=== PATIENT | male | born 1965 | race Caucasian/White ===

== ENCOUNTER 2020-08-16 09:06 | Outpatient (CLI) | payer OTHER | END 2020-08-16 09:14 | disposition HB | LOC: TOM 09:06 | PROVIDERS: ATTEND Specialist | DX: K76.0 Fatty (change of) liver, not elsewhere classified (principal); K57.90 Diverticulosis of intestine, part unspecified, without perforation or abscess without bleeding; K40.90 Unilateral inguinal hernia, without obstruction or gangrene, not specified as recurrent ==